=== PATIENT | male | born 1965 | race Hispanic/Latino ===

== ENCOUNTER 2017-09-05 13:57 | Emergency (ER) | payer MEDICAID, OTHER ==
[2017-09-05 14:40] LABS: Basophils % (Auto) 0.4 % (0.0-1.8); Eosinophils # (Auto) 0.4 K/mm3 (0.0-0.4); Eosinophils % (Auto) 4.2 % (0.0-4.3); Hemoglobin 16.3 gm/dl (11.8-15.2); Lymphocytes # (Auto) 4.5 K/mm3 (1.2-5.4); Lymphocytes % (Auto) 52.7 % (13.4-35.0); Mean Corpuscular HGB Conc 35 % (32-34); Mean Corpuscular Hemoglobin 33 pg (28-32); Mean Corpuscular Volume 94 fl (84-94); Monocytes # (Auto) 0.4 K/mm3 (0.0-0.8); Monocytes % (Auto) 5.1 % (0.0-7.3); Platelet Count 211 K/mm3 (140-440); Red Blood Count 5.01 M/mm3 (3.65-5.03)
[2017-09-05 14:44] LABS: Bacteria,Urine 1+ /HPF (Negative); Bilirubin,Urine NEG (Negative); Blood,Urine NEG (Negative); Color,Urine Yellow (Yellow); Granular Casts,Urine 4 /LPF; Hyaline Casts,Urine 8 /LPF; Mucus,Urine FEW /HPF; Urobilinogen,Urine < 2.0 mg/dL (<2.0)
[2017-09-05 14:50] LABS: Amphetamine Screen,Urine PRESUMPTIVE NEGATIVE; Benzodiazepines Screen,Urine PRESUMPTIVE NEGATIVE; Cannabinoid Screen,Urine PRESUMPTIVE NEGATIVE; Cocaine Screen,Urine PRESUMPTIVE NEGATIVE; Opiate Screen,Urine PRESUMPTIVE NEGATIVE
[2017-09-05 14:54] LABS: BUN/Creatinine Ratio 13; Blood Urea Nitrogen 8 mg/dL (9-20); Calcium 8.6 mg/dL (8.4-10.2); Hemolysis Index 8
[2017-09-05 15:18] LABS: Methadone Screen,Urine PRESUMPTIVE POSITIVE
--- NOTE | 2017-09-05 16:17 | Emergency Department Report ---
ED Psych HPI - General Chief Complaint: Psych Stated Complaint: SUICIDAL/ALCOHOL WITHDRAWL Time Seen by Provider: 09/05/17 16:10 Source: patient Mode of arrival: Ambulatory Limitations: No Limitations - History of Present Illness Initial Comments: Patient is a 52-year-old male that presents to emergency room with complaints of suicidal ideations and anxiety and depression. Patient states he has a long history of drug and alcohol abuse. Patient states his last drink was 1 hour prior to arrival. Patient states his plan for suicide is to overdose with alcohol. Patient states he has tried many times. Patient states he is on methadone for opiate abuse and has been on methadone for 10 years. 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 Patient states she is feeling anxious and shaky at this time. Patient requested a nicotine patch. MD Complaint: suicidal ideation, feels depressed -: Sudden Associated Psychiatric Symptoms: depression, suicidal ideation, racing thoughts History of same: Yes Quality: constant Improves With: none Worsens With: achohol, drug use Context: recent alcohol abuse, recent drug abuse, not taking psychiatric, significant life stressor Associated Symptoms: denies other symptoms Treatments Prior to Arrival: placed on mental he If Self Harm: admits thoughts of, has plan - Related Data Allergies Allergy/AdvReac Type Severity Reaction Status Date / Time No Known Allergies Allergy Unverified 09/05/17 14:10 ED Review of Systems ROS: Stated complaint: SUICIDAL/ALCOHOL WITHDRAWL Other details as noted in HPI Comment: All other systems reviewed and negative Constitutional: denies: chills, fever Eyes: denies: eye pain, eye discharge, vision change ENT: denies: ear pain, throat pain Respiratory: denies: cough, shortness of breath, wheezing Cardiovascular: denies: chest pain, palpitations Endocrine: no symptoms reported Gastrointestinal: denies: abdominal pain, nausea, diarrhea Genitourinary: denies: urgency, dysuria Musculoskeletal: denies: back pain, joint swelling, arthralgia Skin: denies: rash, lesions Neurological: denies: headache, weakness, paresthesias Psychiatric: denies: anxiety, depression Hematological/Lymphatic: denies: easy bleeding, easy bruising ED Past Medical Hx - Past Medical History Previous Medical History?: Yes Hx Seizures: Yes (r/t alcohol abuse) Hx Psychiatric Treatment: Yes (alcohol abuse,drug abuse,bipolar depression) Hx Asthma: Yes (childhood) Additional medical history: vomiting bile with alcohol abuse,hepatitis(type, unknown) - Surgical History Past Surgical History?: Yes Additional Surgical History: left shoulder repair,right ankle,bilateral knee surgery - Family History Family history: hypertension - Social History Smoking Status: Current Every Day Smoker Substance Use Type: Alcohol ED Physical Exam - General Limitations: No Limitations General appearance: alert, in no apparent distress - Head Head exam: Present: atraumatic, normocephalic - Eye Eye exam: Present: normal appearance - ENT ENT exam: Present: mucous membranes moist - Neck Neck exam: Present: normal inspection - Respiratory Respiratory exam: Present: normal lung sounds bilaterally. Absent: respiratory distress - Cardiovascular Cardiovascular Exam: Present: regular rate, normal rhythm. Absent: systolic murmur, diastolic murmur, rubs, gallop - GI/Abdominal GI/Abdominal exam: Present: soft, normal bowel sounds - Rectal Rectal exam: Present: deferred - Extremities Exam Extremities exam: Present: normal inspection - Back Exam Back exam: Present: normal inspection - Neurological Exam Neurological exam: Present: alert, oriented X3 - Psychiatric Psychiatric exam: Present: normal affect, normal mood - Skin Skin exam: Present: warm, dry, intact, normal color. Absent: rash ED Course Vital Signs 09/05/17 09/05/17 09/05/17 13:58 16:17 16:18 Temperature 99.5 F 98.1 F Pulse Rate 122 H 125 H Respiratory 18 18 18 Rate Blood Pressure 126/99 Blood Pressure 134/94 [Left] O2 Sat by Pulse 94 94 94 Oximetry 09/05/17 09/05/17 09/05/17 16:34 16:46 18:00 Temperature 98.0 F Pulse Rate 104 H 112 H 106 H Respiratory 17 14 18 Rate Blood Pressure 133/86 Blood Pressure 133/86 [Left] O2 Sat by Pulse 96 Oximetry ED Medical Decision Making - Lab Data Result diagrams: 09/05/17 14:13 09/05/17 14:13 - Medical Decision Making A 52-year-old male presents to emergency room with suicidal ideations with a plan of overdosing. Patient is medically clear except for his elevated alcohol. We'll continue to monitor patient and consult mental health and consider transferring to another psychiatric facility. - Differential Diagnosis si, depression, alcohol abuse, drug abuse, Critical care attestation.: If time is entered above; I have spent that time in minutes in the direct care of this critically ill patient, excluding procedure time. ED Disposition Clinical Impression: Suicidal ideation, Alcohol addiction Disposition: [id number] PSY HOSP/PSY UNIT Is pt being admited?: No Does the pt Need Aspirin: No Condition: Stable Referrals: PRIMARY CARE, [Primary Care Provider] - 3-5 Days Time of Disposition: 19:53
[2017-09-05] MEDS ORDERED: FOLVITE 1 MG, INFUVITE 10 ML in NACL 0.9% 1000 ML 1,000 ML IV ONE (16:21)
[2017-09-05] MEDS ORDERED: ATIVAN PO ONE (16:22)
[2017-09-05] MEDS ORDERED: HABITROL TD ONE (17:00)
[2017-09-05] MEDS ORDERED: 1: FOLVITE 1 MG, INFUVITE 10 ML, VITAMIN B-1 100 MG in NACL 0.9% 1000 ML 988.8 ML 2: NA IV SCH (17:00)
[2017-09-05] MEDS ORDERED: 1: FOLVITE 1 MG, INFUVITE 10 ML in NACL 0.9% 1000 ML 988.8 ML 2: NACL 0.9% 1000 ML 1,00 IV SCH (18:00)
[2017-09-05] MEDS: VITAMIN B-1 PO SCH (18:04)
[2017-09-06] MEDS: VITAMIN B-1 PO SCH (09:49)
[2017-09-07] MEDS ORDERED: ATIVAN PO PRN (08:21)
[2017-09-07] MEDS: ATIVAN PO PRN ×2 (08:40→23:46)
[2017-09-07 09:16] LABS: Alanine Aminotransferase 73 units/L (7-56)
--- NOTE | 2017-09-07 10:17 | Consultation ---
History of Present Illness - Reason for Consult Consult date: 09/07/17 Reason for consult: Mental Health Evaluation Requesting physician: SUSHMA LOPEZ III - Chief Complaint Chief complaint: "I need help with the drinking" - History of Present Psychiatric Illness 52-year-old male that presents to emergency room with complaints of being depressed with SI's. Today the patient is calm and cooperative during the assessment. He stated that he been drinking since he was 14 yrs old. He stated drinking (etoh) more frequent to self medicate to lower his depression and anxiety. He stated that he does not have the money to buy his medication, so this "worries" him per the patient. He stated that he takes Zoloft. He stated that he was dx with depression/anxiety several yrs ago. He stated that he is homeless unless he resides with his sister. Currently, he stated that he have not spoken with his children and this has exacerbates his depression. He rate his depression/anxiety 6/10, with 10 being the worse. He denies SI/HI's and AVH' s. He denies any manic episodes in the past. He denies erratic sleep and a poor appetite. He denies recreation drug use. The patient's alcohol serum on admission 0.38. He stated having an opiate addiction and transitioned to Methadone. He stated his last drink was Friday09/05/2017 and he last took Methadone 09/03/2017. He denies N/V. Medications and Allergies Allergies Allergy/AdvReac Type Severity Reaction Status Date / Time No Known Allergies Allergy Unverified 09/05/17 14:10 Active Meds: Active Medications Lorazepam (Ativan) 2 mg PO Q1HR PRN PRN Reason: CIWA-Ar 8-15 Last Admin: 09/07/17 08:40 Dose: 2 mg Lorazepam (Ativan) 4 mg PO Q1HR PRN PRN Reason: CIWA-Ar 16-25 Thiamine HCl (Vitamin B-1) 100 mg PO QDAY JO Last Admin: 09/06/17 09:49 Dose: 100 mg Past psychiatric history - Past Medical History Past Medical History: other (Asthma) Past Surgical History: Other (Left shoulder surgery) - past Psychiatric treatment and history psychiatric treatment history: Hx of alcohol abuse. Denies a psy fam hx. - Social History Social history: other (Homeless) Mental Status Exam - Vital signs Last Vital Signs Temp 97.7 F 09/07/17 08:08 Pulse 75 09/07/17 08:08 Resp 16 09/07/17 08:08 BP 159/116 09/07/17 08:08 Pulse Ox 100 09/07/17 08:08 - Exam Narrative exam: MSE: Appearance: calm, cooperative Behavior: regular eye contact Speech: regular rate and tone Mood: "fine" Affect: congruent to mood Thought Process: circumstantial Thought Content: denies SI/HI's and AVH's Motor Activity: ambulatory Cognition: A/O x3 Insight: fair Judgment: fair Results Result Diagrams: 09/05/17 14:13 09/05/17 14:13 Abnormal lab results 09/07/17 Range/Units 08:41 AST 65 H (5-40) units/L ALT 73 H (7-56) units/L All other labs normal. Assessment and Plan Assessment and plan: Impression: MDD. DEVANG. Alcohol Use DO. Today the patient is calm and cooperative during the assessment. Mild tremors noted on assessment (etoh). The patient denies N/V (opiate withdrawals). DDx: R/O Bipolar DO Recommendation/Plan: Continue 1013 and gather collateral information to help determine proper dispo. Continue CIWA. Start Zoloft 50 mg PO daily for depression/anxiety and Zofran 4 mg PO (ODT) Q8hrs for N/V. Discussed possible suicidality/medication induced reg with patient reference Zoloft. Monitor for opiate withdrawals.
[2017-09-07] MEDS: VITAMIN B-1 PO SCH (10:33)
[2017-09-07] MEDS ORDERED: ZOFRAN ODT PO PRN (10:34)
[2017-09-07] MEDS: ZOLOFT PO SCH (11:34)
--- NOTE | 2017-09-08 09:58 | Progress Note ---
Subjective - Reason for Consult Consult date: 09/08/17 Reason for consult: Psychiatry Follow-up - Chief Complaint Chief complaint: "I definitely has to stop drinking" 52-year-old male that presents to emergency room with complaints of being depressed with SI's. Today the patient is calm and cooperative during the assessment. The patient is adamant about getting help for his alcoholism. Per collateral information from his sister Ann, who was at bedside, she stated that her brother would benefit from rehab services. She stated that she is frustrated with his drinking (etoh). He stated that he mentioned being suicidal on admission so he could get some help for his alcohol abuse. He denies SI/HI's and AVH's. He denies any side effects of his medication. He stated that he would need a referral for outpatient psy/rehab services when discharged. Mental Status Exam - Vital signs Last Vital Signs Temp 98.0 F 09/08/17 08:12 Pulse 84 09/08/17 08:12 Resp 18 09/08/17 08:12 BP 142/98 09/08/17 08:12 Pulse Ox 98 09/08/17 08:12 - Exam Narrative exam: MSE: Appearance: calm, cooperative Behavior: regular eye contact Speech: regular rate and tone Mood: "fine" Affect: congruent to mood Thought Process: linear Thought Content: denies SI/HI's and AVH's Motor Activity: ambulatory Cognition: A/O x3 Insight: appropriate Judgment: appropriate Assessment and Plan Impression: MDD. DEVANG. Alcohol Use DO. Today the patient is calm and cooperative during the assessment. The patient denies N/V (opiate withdrawals). No withdrawals noted (etoh). DDx: R/O Bipolar DO Recommendation/Plan: Rescind 1013. Continue Zoloft 50 mg PO daily for depression /anxiety. Discussed possible suicidality/medication induced reg with patient reference Zoloft. The patient can follow up with [facility] for outpatient/ rehab services.
[2017-09-08] MEDS: ZOLOFT PO SCH (10:01)
[2017-09-08] MEDS: VITAMIN B-1 PO SCH (10:01)
[2017-09-08 15:07] VITALS: BP 128/94
== END 2017-09-08 17:30 ==
LOC: ED 13:57 → EEVIPCON 13:57 → ED 09-08 17:30
DX: R45.851 Suicidal ideations (principal); F10.20 Alcohol dependence, uncomplicated; F31.9 Bipolar disorder, unspecified; F41.9 Anxiety disorder, unspecified; G40.909 Epilepsy, unspecified, not intractable, without status epilepticus; F17.200 Nicotine dependence, unspecified, uncomplicated; I10 Essential (primary) hypertension; J45.909 Unspecified asthma, uncomplicated
CPT/HCPCS: 36415; 80048; 80307; 81001; 84075; 84450; 84460; 85025; 96365; 96366; 99285; G0480; J3411; J7030; 80320